=== PATIENT | male | born 1945 | race Caucasian/White ===

== ENCOUNTER 2021-03-31 06:14 | Emergency (ER) | payer OTHER ==
[~2021-03-31] VITALS: Ht 182.9 cm; Wt 97.5 kg
[2021-03-31 06:18] VITALS: BP 137/74
[2021-03-31 06:51] LABS: HEMATOCRIT 44.6 % (42.0-52.0); HEMOGLOBIN 15.1 gm/dL (14.0-18.0); MCH 31.5 pg (26.0-34.0); MCHC 33.9 g/dL (28.0-37.0); MCV 92.7 fL (80.0-100.0); RBC 4.81 mil/uL (4.50-6.00); RDW 14.5 % (10.5-14.5); WBC 6.8 thou/uL (4.0-11.0)
[2021-03-31 06:55] LABS: CALCIUM 7.9 mg/dL (8.5-10.1); CREATININE 1.2 mg/dL (0.7-1.3); POTASSIUM 3.9 mmol/L (3.5-5.1)
[2021-03-31 07:01] LABS: ALBUMIN 2.9 g/dL (3.4-5.0); TOTAL BILIRUBIN 0.9 mg/dL (0.2-1.0); TOTAL PROTEIN 6.6 g/dL (6.4-8.2)
[2021-03-31 09:48] VITALS: BP 109/64
[2021-03-31] MEDS ORDERED: XARELTO10 MG PO (11:15)
--- NOTE | 2021-03-31 11:54 | 2DMMODE ---
[facility] [place] [address] 2 D/M-MODE ECHOCARDIOGRAM Name: DEMETRIUS SMITH Room #: 150-10 ADM IN M.R.#: [id number] Admission: 03/31/21 Attend Phys: Jack Pollard MD, Discharge: Date of : 41 Report #: [id number] THIS REPORT FOR: cc: YNES OCONNOR MD Physician not on staff John Alcala MD [facility] ~ APPROVED REPORT Study performed: 03/31/2021 08:47:16 EXAM: Comprehensive 2D, Doppler, and color-flow Echocardiogram Patient Location: ER Room #: 10 Status: stat BSA: 2.20 HR: 122 bpm Rhythm: Atrial Fibrillation Other Information Study Quality: Adequate Indications Atrial Fibrillation 2D Dimensions IVSd: 15.56 (7-11mm) LVOT Diam: 21.71 (18-24mm) LVDd: 41.81 mm PWd: 15.97 (7-11mm) Ascending Ao: 33.80 (22-36mm) LVDs: 24.92 (25-40mm) Left Atrium: 38.40 (27-40mm) Aortic Root: 32.87 mm Volumes Left Atrial Volume (Systole) Single Plane 4CH: 44.49 mL Single Plane 2CH: 27.94 mL Biplane LA Volume: 40.00 mL LA ESV Index: 18.00 mL/m2 Aortic Valve AoV Peak Matias.: 1.36 m/s AO Peak Gr.: 10.28 mmHg LVOT Max P.93 mmHg LVOT Max V: 1.11 m/s TORIBIO Vmax: 3.02 cm2 [facility] [address] [place] [address] 2 D/M-MODE ECHOCARDIOGRAM Name: DEMETRIUS SMITH Room #: 150-10 ADM IN .R.#: [id number] Admission: 03/31/21 Attend Phys: Jack Pollard, Discharge: Date of : 41 Report #: [id number] Pulmonary Valve PV Peak Matias.: 0.89 m/s PV Peak Gr.: 3.15 mmHg Left Ventricle Mild to moderate concentric left ventricular hypertrophy. The left ventricular systolic function is normal. The left ventricular ejection fraction is within the normal range. LVEF is 55-60%. This study is not technically sufficient to allow evaluation of the LV diastolic function due to atrial fibrillation. Right Ventricle The right ventricle is normal size. The right ventricular systolic function is normal. Atria The left atrium size is normal. The right atrium size is normal. Aortic Valve Aortic valve is trileaflet. No aortic regurgitation is present. There is no aortic valvular stenosis. Mitral Valve The mitral valve is normal in structure. Trace mitral regurgitation. Tricuspid Valve The tricuspid valve is normal in structure. Trace tricuspid regurgitation. Unable to assess PA pressure. Great Vessels IVC is normal in size and collapses >50% with inspiration. Pericardium There is no pleural effusion. <Conclusion> Technically difficult study normal left ventricular size with mild to moderate concentric hypertrophy Ejection fraction 60% Normal right ventricular size/function Normal aortic/mitral valve structure and function Trace tricuspid valve insufficiency, unable to assess PA systolic pressure [facility] [address] [place] [address] 2 D/M-MODE ECHOCARDIOGRAM Name: DEMETRIUS SMITH Room #: 150-10 ADM IN .R.#: [id number] Admission: 03/31/21 Attend Phys: Jack Pollard, Discharge: Date of : 41 Report #: [id number] No pericardial effusion Normal aortic root size <ELECTRONICALLY SIGNED> By: John Alcala MD, FACC 03/31/21 1154 1154 1154 John Alcala MD, FACC /INF
--- NOTE | 2021-03-31 11:58 | TEE ---
[facility] [address] [place] [address] TRANSESOPHAGEAL ECHOCARDIOGRAM Name: DEMETRIUS SMITH Room #: 150-10 ADM IN M.R.#: [id number] Admission: 03/31/21 Attend Phys: Jack Pollard MD, Discharge: Date of : 41 Report #: [id number] THIS REPORT FOR: cc: YNES OCONNOR MD Physician not on staff John Alcala MD [facility] ~ APPROVED REPORT Study performed: 03/31/2021 10:08:06 EXAM: Transesophageal Echocardiogram Patient Location: [facility] Room #: 9 Status: routine BSA: 2.20 HR: 112 bpm Rhythm: Atrial Fibrillation Other Information Study Quality: Good Indications Atrial Fibrillation Procedure After obtaining informed consent, patient underwent transesophageal echo in the [employer]. Type of Sedation : Conscious Sedation Sedation was administered by Gisell Florence RN. Sedation start time: 1015 Case end Time: 1036 Sedation was achieved intravenously with: The JED was performed without complications. Synchronized Cardioversion attempted: Successful Synchronized Cardioversion acheived with 120 Joules after 1 attempt(s). Rhythm following Synchronized Cardioversion: Normal Sinus Rhythm Throughout the procedure, the blood pressure, pulse oximetry, cardiac rhythm, and rate were monitored. The patient tolerated the procedure without adverse effects. Recovery from conscious sedation was uneventful and vital signs were stable. Left Ventricle [place] [address] TRANSESOPHAGEAL ECHOCARDIOGRAM Name: DEMETRIUS SMITH Room #: 150-10 ADM IN M.R.#: [id number] Admission: 03/31/21 Attend Phys: Jack Pollard, Discharge: Date of : 41 Report #: [id number] The left ventricle is normal size. There is normal left ventricular wall thickness. The left ventricular systolic function is normal. The left ventricular ejection fraction is within the normal range. LVEF is 55-60%. Right Ventricle The right ventricle is normal size. The right ventricular systolic function is normal. Atria Left atrium is mildly dilated. The right atrium size is normal. Aortic Valve The aortic valve is normal in structure. No aortic regurgitation is present. There is no aortic valvular stenosis. Mitral Valve The mitral valve is normal in structure. Mild mitral regurgitation. No evidence of mitral valve stenosis. Tricuspid Valve The tricuspid valve is normal in structure. There is no tricuspid valve regurgitation noted. Pulmonic Valve The pulmonary valve is normal in structure. There is no pulmonic valvular regurgitation. Great Vessels The aortic root is normal in size. Minimal calcification Pericardium There is no pericardial effusion. <Conclusion> Consent was obtained Timeout was performed Esophageal probe was advanced without difficulty Left atrial appendage, moderate size no obvious mass or clot detected Normal left ventricle size/wall thickness ejection fraction 50-55% Left atrium mildly dilated Normal right atrial size [address] [address] TRANSESOPHAGEAL ECHOCARDIOGRAM Name: DEMETRIUS SMITH Room #: 150-10 ADM IN M.R.#: [id number] Admission: 03/31/21 Attend Phys: Jack Pollard, Discharge: Date of : 41 Report #: [id number] Normal aortic valve structure and function Mild/central mitral valve insufficiency No evidence of ASD/VSD by color flow/bubble study Aorta with minimal calcification Patient was cardioverted with 120Jsinus rhythm >> few minutes later back in A. fib Repeat cardioversion with 120J back to sinus rhythm Patient tolerated procedure well Twelve-lead ECG pending <ELECTRONICALLY SIGNED> By: John Alcala MD, FACC 03/31/21 1158 1158 1158 John Alcala MD, FACC /INF
--- NOTE | 2021-03-31 15:52 | EKG ---
[address] [place] [address] ELECTROCARDIOGRAM REPORT Name: DEMETRIUS SMITH [place] Room #: 150-10 ADM IN M.R.#: [id number] Admission: 03/31/21 Attend Phys: Jack Pollard MD, Discharge: Date of : 41 Report #: [id number] 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 : 1945 Requested By: Lyric Hagen Order Number: [id number] MD: John Alcala Measurements Intervals [place] Rate: 138 P: LA: QRS: 40 QRSD: 83 T: QT: 279 QTc: 423 Interpretive Statements Atrial fibrillation with rapid V-rate Repolarization abnormality, prob rate related Compared to ECG 08/06/2004 11:48:16 Early repolarization now present Sinus rhythm no longer present Electronically Signed On 03-31-2021 15:52:29 CDT by John Alcala [email or web address] <ELECTRONICALLY SIGNED> By: John Alcala MD, [facility] 03/31/21 1552 5 5 John Alcala MD, [facility] /EPI
--- NOTE | 2021-03-31 15:54 | EKG ---
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
== END 2021-03-31 12:39 | disposition home or self-care (01) ==
LOC: CATH 06:14 → ER 06:14 → TBA 10:10
PROVIDERS: Student in an Organized Health Care Education/Training Program
DX: I48.91 Unspecified atrial fibrillation (principal); I08.1 Rheumatic disorders of both mitral and tricuspid valves; Z98.890 Other specified postprocedural states; Z79.899 Other long term (current) drug therapy; Z85.46 Personal history of malignant neoplasm of prostate; Z79.01 Long term (current) use of anticoagulants